=== PATIENT | male | born 1990 | race Caucasian/White ===

== ENCOUNTER 2018-12-10 01:35 | Emergency (ER) | payer OTHER ==
[2018-12-10 01:47] VITALS: BP 128/81; PULSE 66; RESP 18; TEMP 97.8
--- NOTE | 2018-12-10 02:02 | ED ---
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 The person was known to be hepatitis C positive. The patient is unsure if he was exposed to any blood or body fluid. He denies any injuries. He does have a scabbed wound to his left elbow. Denies any other physical symptoms or concerns. - Related Data Allergies Allergy/AdvReac Type Severity Reaction Status Date / Time Penicillins Allergy Unknown Verified 12/10/18 01:51 Childhood Review of Systems ROS Statement: Those systems with pertinent positive or pertinent negative responses have been documented in the HPI. ROS Other: All systems not noted in ROS Statement are negative. Past Medical History Past Medical History: GERD/Reflux Additional Past Medical History / Comment(s): heart murmur History of Any Multi-Drug Resistant Organisms: None Reported Past Surgical History: No Surgical Hx Reported Past Psychological History: No Psychological Hx Reported Smoking Status: Never smoker Past Alcohol Use History: None Reported Past Drug Use History: None Reported General Exam Limitations: no limitations General appearance: alert, in no apparent distress, other (Physical well- developed, well-nourished adult male patient in no acute distress. Vital signs upon presentation are temperature 97.8F, pulse 66, respirations 18, blood pressure 128/81, pulse ox 97% on room air.) Respiratory exam: Present: normal lung sounds bilaterally. Absent: respiratory distress, wheezes, rales, rhonchi, stridor Cardiovascular Exam: Present: regular rate, normal rhythm, normal heart sounds. Absent: systolic murmur, diastolic murmur, rubs, gallop, clicks Neurological exam: Present: alert, oriented X3, CN II-XII intact Psychiatric exam: Present: normal affect, normal mood Skin exam: Present: warm, dry, intact, normal color. Absent: rash Course Vital Signs 12/10/18 01:37 Temperature 97.8 F Pulse Rate 66 Respiratory 18 Rate Blood Pressure 128/81 O2 Sat by Pulse 97 Oximetry Medical Decision Making - Medical Decision Making 28-year-old male patient consented to the emergency department today for evaluation after possibly being exposed to the body fluids of an individual was hepatitis C positive. Patient does not believe he had any blood or body fluid on him however he does have an open wound on his left elbow this would like to be tested. Source testing was negative for HIV. His labs will be drawn and he will be sent to employee health for further postexposure testing. He'll be discharged to follow-up with his primary care physician for recheck as soon as possible. Return parameters discussed in detail. He verbalizes understanding and agrees with this plan. Disposition Clinical Impression: Exposure to blood or body fluid Disposition: HOME SELF-CARE Condition: Good Instructions (If sedation given, give patient instructions): Body Substance Exposure (ED) Additional Instructions: Follow-up with [employer] for post exposure testing. The number is listed on your [facility] form. Follow-up through primary care physician for recheck as soon as possible. Return to the emergency department immediately for any new, worsening, or concerning symptoms. Is patient prescribed a controlled substance at d/c from ED?: No Referrals: Cale Solorio MD [Primary Care Provider] - 1-2 days Time of Disposition: 02:02
[2018-12-10 17:53] LABS: Hepatitis C IgG Antibody Non-Reactive (Non-Reactive)
[2018-12-10 18:26] LABS: HIV 1 AB Non-Reactive (Non-Reactive); HIV AB P24 Non-Reactive (Non-Reactive); HIV P24 AG Non-Reactive (Non-Reactive)
== END 2018-12-10 02:06 | disposition home or self-care (01) ==
LOC: EC 01:35
DX: Z77.21 Contact with and (suspected) exposure to potentially hazardous body fluids (principal); S51.002A Unspecified open wound of left elbow, initial encounter; Z88.0 Allergy status to penicillin
CPT/HCPCS: 36415; 86706; 86803; 87340; 87390; 99282

== ENCOUNTER 2021-08-04 23:26 | Emergency (ER) | payer OTHER ==
[2021-08-04 23:49] VITALS: BP 116/56; PULSE 107; RESP 20; TEMP 97.9
[2021-08-04] MEDS ORDERED: DIPH,PERTUS(ACELL)TETVAC-LF 0.5 ML VIAL IM ONE (23:54)
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
[2021-08-05 09:38] LABS: Hepatitis B Surface Antibody Reactive (Nonreactive); Hepatitis C IgG Antibody Nonreactive (Nonreactive)
[2021-08-07 23:19] LABS: HIV 2 AB Non-Reactive (Non-Reactive); HIV AB P24 Non-Reactive (Non-Reactive); HIV P24 AG Non-Reactive (Non-Reactive)
== END 2021-08-05 00:45 | disposition home or self-care (01) ==
LOC: EC 23:26
DX: Z77.21 Contact with and (suspected) exposure to potentially hazardous body fluids (principal); Z88.0 Allergy status to penicillin
CPT/HCPCS: 36415; 86706; 86803; 87390; 90471; 90715; 99283